=== PATIENT | male | born 1940 | race Caucasian/White ===

== ENCOUNTER 2017-01-05 20:23 | Emergency (ER) | payer OTHER ==
[2017-01-05 20:39] VITALS: BP 151/84; BMI 37.2
[2017-01-05] MEDS ORDERED: PEPCID 20 MG IV PREMIX* 20 MG/50 ML BAG IV ONE ×2 (20:39→21:07)
[2017-01-05] MEDS ORDERED: NS 1000 ML 1,000 ML IV ONE (20:40)
--- NOTE | 2017-01-05 20:41 | DR.GENAD ---
HPI - PCP Primary Care Physician: WATSON - HPI Comment HPI Comment: STARTED TODAY WITH LOW GRADE FEVER. PATIENT DENIES DYSURIA. HAVING SLIGHT SOB. PAIN PROGRESSIVELY GETTING WORSE. - Complaint/Symptoms Chief Complaint Doctors Comments: ABDOMINAL PAIN, NAUSEA, DIARRHEA AND GENERALIZE WEAKNESS. Chief Complaint:: FEVER, STOMACH PAIN, BOWELS RUNNING OFF Self Treatment fo Chief Complaint: TYLENOL - Nurses notes reviewed Nurses Notes Review: Yes - Source History Provided: Patient - Mode of Arrival Mode of Arrival: Wheelchair - Timing Onset of Chief Complaint: 01/05/17 Came on: Suddenly - Duration Duration: Constant Duration: Days - Severity Severity: Moderate PMH - PMH Past Medical History: Yes Past Medical History: Diabetes, Dyslipidemia, Hypertension, [place] Past Medical History Comment: STOMACH ULCERS Past Surgical History: Yes Surgical History: Angioplasty/Stents Past Surgical History Comment: HERNIA SURGER WITH SURGICAL MESH - Family History History of Family Medical Conditions: Yes Family Medical History: [place], Coronary Artery Disease, Hypertension - Social History Does patient currently use any type of tobacco product: No Have you used tobacco products in the last 12 months: No Type of Tobacco Use: Cigarettes Does any household member use tobacco: No Alcohol Use: None Do you use any recreational Drugs:: No Lives With: Spouse Lives Where: Home - infectious screening In the last 2 months have you had wt loss of >10#?: NO Have you had fever, night sweats or hemotysis?: No Have you traveled outside the country in the last 6 months?: No Isolation: Standard ROS - Review of Systems Constitutional: Fever, Weakness, Fatigue. negative: Chills, Diaphoresis, Loss of Appetite Eyes: No Symptoms Reported. negative: Eye Pain, Discharge ENTM: negative: Ear Pain, Nose Discharge, Nose Congestion, Throat Pain Respiratoy: Non-Productive Cough, Short of Breath, Wheezing. negative: Hemoptysis Cardiovascular: Chest Pain, Edema, Palpitations. negative: Syncope Gastrointestinal/Abdominal: Abdominal Pain, Diarrhea, Nausea. negative: Constipation, Vomiting Genitourinary: negative: Dysuria, Frequency, Hematuria Neurological: Headache, Weakness, Dizziness Musculoskeletal: Muscle Pain Integumentary: Rash (CHRONIC DERMATITIS.) Hematologic/Lymphatic: No Symptoms Reported Endocrine: No Symptoms Reported All Other Systems: Reviewed and Negative PE - Vital Signs Vitals: Temperature 100.4 F Pulse Rate 109 Respiratory Rate 16 Blood Pressure [Right Arm] 181/85 Blood Pressure [Left Arm] 151/75 Blood Pressure 151/84 O2 Sat by Pulse Oximetry 94 - General Limitations: No Limitations General Appearance: Alert - Head Head Exam: Normal Inspection - Eyes Eye exam: Normal Appearance - ENT ENT Exam: Normal External Ear Exam External Ear Exam: Normal External Inspection TM/Canal Exam: Bilateral Normal Nose Exam: Normal Nose Exam Mouth Exam: Normal Inspection Throat Exam: Normal Inspection - Neck Neck Exam: Trachea Midline - Chest Chest Inspection: Symmetric Chest Wall Rise - Respiratory Respiratory Exam: Respiratory Distress Respiratory Exam: Bilateral Rhonchi, Lower Rhonchi - Cardiovascular Cardiovascular Exam: Regular Rate, Normal Rhythm, Normal Heart Sounds - Abdominal Exam Abdominal Exam: Normal Bowel Sounds, Soft, Tenderness Abdominal Tenderness: Diffuse, Moderate - Extremities Extremities Exam: Edema - Back Back Exam: Paraspinal Tenderness, Vertebral Tenderness - Neurologic Neurological Exam: Alert, Oriented X3 - Psychiatric Psychiatric Exam: Normal Affect, Normal Mood - Skin Skin Exam: Erythema MDM - Additional Information Additional Information Obtained From: Family - Differential Diagnosis Differential Diagnosis: ABDOMINAL PAIN, DIARRHEA, NAUSEA, DEHYDRATION Course - Treatment Treatment: SEE ORDERS. MEDS GIVEN IN ED WITH IV FLUID. PATIENTS NAUSEA IMPROVING. - Reevaluation 1st: Improved - Consultation Consultation Comments: DISCUSS PATIENT WITH DR. JOSE. ER MANAGEMENT FOR NOW. - Education/Counseling Education/Counseling: Patient, Family, Education Educated On: Treatment, Diagnosis, Needs for Follow Up ROR - Labs Reviewed Laboratory Results Reviewed?: Yes Result Diagrams: 01/05/17 20:50 01/05/17 20:50 Laboratory: 01/06/17 00:35 Stool Stool Culture - Preliminary 01/06/17 00:35 Stool - Final WBC 9.8 X10^3/uL (3.6-10.0) 01/05/17 20:50 RBC 5.07 X10^6/uL (4.7-6.0) 01/05/17 20:50 Hgb 14.9 g/dL (13.5-18.0) 01/05/17 20:50 Hct 44.3 % (42.0-54.0) 01/05/17 20:50 MCV 87.5 fL (80.0-100.0) 01/05/17 20:50 MCH 29.5 pg (27.0-34.0) 01/05/17 20:50 MCHC 33.7 g/dL (33.0-35.0) 01/05/17 20:50 RDW 14.1 % (11.6-16.5) 01/05/17 20:50 Plt Count 251 X10^3/uL (150.0-450.0) 01/05/17 20:50 Plt Count Comment Adequate (ADEQUATE) 01/05/17 20:50 MPV 8.2 fL (7.4-11.0) 01/05/17 20:50 Neut % 94.2 % (42.0-75.0) H 01/05/17 20:50 Lymph % 2.7 % (21.0-51.0) L 01/05/17 20:50 Pettis % 2.7 % (0.0-13.0) 01/05/17 20:50 Eos % 0.2 % (0.9-2.9) L 01/05/17 20:50 Baso % 0.2 % (0.2-1.0) 01/05/17 20:50 Neut # 9.2 x10^3/uL (2.2-4.8) H 01/05/17 20:50 Lymph # 0.3 X10^3/uL (1.3-2.9) L 01/05/17 20:50 Pettis # 0.3 x10^3/uL (0.3-0.8) 01/05/17 20:50 Eos # 0.0 x10^3/uL (0.0-0.2) 01/05/17 20:50 Baso # 0.0 X10^3/uL (0.0-0.1) 01/05/17 20:50 Absolute Nucleated RBC 0.0 /100WBC 01/05/17 20:50 Total Counted 100 01/05/17 20:50 Neutrophils % (Manual) 95 % (39-76) H 01/05/17 20:50 Band Neutrophils % 3 % (0-10) 01/05/17 20:50 Lymphocytes % (Manual) 2 % (13-43) L 01/05/17 20:50 Plt Morphology Comment Normal (NORMAL) 01/05/17 20:50 RBC Morphology Normal (NORMAL) 01/05/17 20:50 Sodium 136 mmol/L (136-145) 01/05/17 20:50 Corrected Sodium 137 mmol/L (136-145) 01/05/17 20:50 Potassium 3.6 mmol/L (3.5-5.1) 01/05/17 20:50 Chloride 103 mmol/L (98-107) 01/05/17 20:50 Carbon Dioxide 23.7 mmol/L (21-32) 01/05/17 20:50 BUN 30 mg/dL (7-18) H 01/05/17 20:50 Creatinine 1.70 mg/dL (0.70-1.30) H 01/05/17 20:50 Est GFR (MDRD) Af Amer 51 (>60) L 01/05/17 20:50 Est GFR (MDRD) Non-Af 42 (>60) L 01/05/17 20:50 Glucose 151 mg/dL (65-99) H 01/05/17 20:50 Calcium 8.8 mg/dL (8.5-10.1) 01/05/17 20:50 Corrected Calcium TNP 01/05/17 20:50 Total Bilirubin 0.50 mg/dL (0.2-1.0) 01/05/17 20:50 AST 25 Units/L (15-37) 01/05/17 20:50 ALT 42 Units/L (12-78) 01/05/17 20:50 Alkaline Phosphatase 48 Units/L (46-116) 01/05/17 20:50 Creatine Kinase 213 Units/L (39-308) 01/05/17 20:50 CK-MB (CK-2) < 1.0 ng/mL (0-4.0) 01/05/17 20:50 CK/CKMB % Calc 0.5 % (<4) 01/05/17 20:50 Troponin I < 0.02 ng/mL (0-1.5) 01/05/17 20:50 Total Protein 7.8 g/dL (6.4-8.2) 01/05/17 20:50 Albumin 3.8 g/dL (3.4-5.0) 01/05/17 20:50 Globulin 4.0 g/dL (2.5-4.5) 01/05/17 20:50 Albumin/Globulin Ratio 1.0 Ratio (1.1-2.1) L 01/05/17 20:50 Amylase 28 Units/L (25-115) 01/05/17 20:50 Lipase 100 Units/L (73-393) 01/05/17 20:50 Specimen Type Clean catch urine 01/05/17 22:25 Urine Color Yellow (YELLOW) 01/05/17 22:25 Urine Appearance Slightly hazy (CLEAR) 01/05/17 22:25 Urine pH 5.0 (5.0 - 8.0) 01/05/17 22:25 Ur Specific [place] 1.020 (1.000-1.030) 01/05/17 22:25 Urine Protein 3+ (NEGATIVE) 01/05/17 22:25 Urine Glucose (UA) Negative (NEGATIVE) 01/05/17 22:25 Urine Ketones Negative (NEGATIVE) 01/05/17 22:25 Urine Occult Blood 2+ (NEGATIVE) 01/05/17 22:25 Urine Nitrite Negative (NEGATIVE) 01/05/17 22:25 Urine Bilirubin Negative (NEGATIVE) 01/05/17 22:25 Urine Urobilinogen Normal (NORMAL) 01/05/17 22:25 Ur Leukocyte Esterase 1+ (NEGATIVE) 01/05/17 22:25 Urine RBC 0-3 /HPF (NEGATIVE) 01/05/17 22:25 Urine WBC 2-5 /HPF (NEGATIVE) 01/05/17 22:25 Ur Squamous Epith Cells Moderate /HPF (NEGATIVE) 01/05/17 22:25 Urine Bacteria Trace /HPF (NEGATIVE) 01/05/17 22:25 Hyaline Casts Few /LPF (NEGATIVE) 01/05/17 22:25 Urine Mucus Few /HPF (NEGATIVE) 01/05/17 22:25 Ur Culture Indicated? No/not indicated 01/05/17 22:25 Stool Description 40g liquid brown 01/06/17 00:35 Stool for White Cells No wbc's seen (None) 01/06/17 00:35 Stl C. diff Tox B Gene Negative (NEGATIVE) 01/06/17 00:35 Stl C. diff [id number] Negative (NEGATIVE) 01/06/17 00:35 Cryptosporid parvum Ag Negative (NEGATIVE) 01/06/17 00:35 E. histolytica Antigen Negative (NEGATIVE) 01/06/17 00:35 Giardia lamblia Ag Negative (NEGATIVE) 01/06/17 00:35 - XRAY XRAY Interpreted by: Radiologist XRAY Findings: REPORT DISCUSS WITH PATIENT AND HIS . - EKG Rhythm: NSR (EKG NOTED) - Diagnosis Discharge Problem: Gastroenteritis Abdominal pain Qualifiers: Abdominal location: lower abdomen, unspecified Qualified Code(s): R10.30 - Lower abdominal pain, unspecified Diarrhea Qualifiers: Diarrhea type: unspecified type Qualified Code(s): R19.7 - Diarrhea, unspecified - Discharge Plan Disposition: HOME, SELF-CARE Condition: Stable Prescriptions: Diphenoxylate/Atropine [Lomotil] 1 tab PO TID #12 tab Ondansetron HCl [Zofran Tab 4 mg] 4 mg PO Q8H PRN #12 tab PRN Reason: Nausea/Vomiting - Follow ups/Referrals Follow ups/Referrals: RUBI CHAUDHARI [Primary Care Provider] - 3 days - Instructions Instructions: Abdominal Pain, Adult, [id number], Diarrhea, Adult, Easy-to- Read, Nausea, Adult, [id number], Dehydration, Elderly, [id number] Additional Instructions: RETURN TO ED IF WORSE.
[2017-01-05] MEDS ORDERED: ZOFRAN INJ 4 MG VIAL IVP ONE (20:56)
[2017-01-05] MEDS ORDERED: DEMEROL INJ IVP ONE (20:56)
[2017-01-05 20:59] LABS: BASOPHILS % (AUTO) 0.2 % (0.2-1.0); EOSINOPHILS % (AUTO) 0.2 % (0.9-2.9); HEMATOCRIT 44.3 % (42.0-54.0); HEMOGLOBIN 14.9 g/dL (13.5-18.0); LYMPHOCYTES # (AUTO) 0.3 X10^3/uL (1.3-2.9); LYMPHOCYTES % (AUTO) 2.7 % (21.0-51.0); MEAN CORPUSCULAR HEMOGLOBIN 29.5 pg (27.0-34.0); MEAN CORPUSCULAR HGB CONC 33.7 g/dL (33.0-35.0); MEAN CORPUSCULAR VOLUME 87.5 fL (80.0-100.0); MEAN PLATELET VOLUME 8.2 fL (7.4-11.0); MONOCYTES # (AUTO) 0.3 x10^3/uL (0.3-0.8); MONOCYTES % (AUTO) 2.7 % (0.0-13.0); NEUTROPHILS # (AUTO) 9.2 x10^3/uL (2.2-4.8); NEUTROPHILS % (AUTO) 94.2 % (42.0-75.0); PLATELET COUNT 251 X10^3/uL (150.0-450.0); RED BLOOD COUNT 5.07 X10^6/uL (4.7-6.0); RED CELL DISTRIBUTION WIDTH 14.1 % (11.6-16.5); WHITE BLOOD COUNT 9.8 X10^3/uL (3.6-10.0)
[2017-01-05] MEDS ORDERED: NS 1000 ML 1,000 ML ONE (21:07)
[2017-01-05] MEDS ORDERED: ZOFRAN INJ 4 MG VIAL ONE (21:07)
[2017-01-05] MEDS ORDERED: DEMEROL INJ ONE (21:08)
[2017-01-05 21:11] LABS: ALANINE AMINOTRANSFERASE 42 Units/L (12-78); ALBUMIN 3.8 g/dL (3.4-5.0); ALKALINE PHOSPHATASE 48 Units/L (46-116); AMYLASE 28 Units/L (25-115); ASPARTATE AMINO TRANSFERASE 25 Units/L (15-37); BLOOD UREA NITROGEN 30 mg/dL (7-18); CALCIUM 8.8 mg/dL (8.5-10.1); CARBON DIOXIDE 23.7 mmol/L (21-32); CHLORIDE 103 mmol/L (98-107); COR NA(FOR HYPERGLY) 137 mmol/L (136-145); GLUCOSE 151 mg/dL (65-99); LIPASE 100 Units/L (73-393); SODIUM 136 mmol/L (136-145); TOTAL PROTEIN 7.8 g/dL (6.4-8.2); eGFR BLACK RACES 51 (>60); eGFR NON BLACK RACES 42 (>60)
[2017-01-05 21:12] LABS: BAND NEUTROPHILS % 3 % (0-10); PLATELET MORPHOLOGY COMMENT NORMAL (NORMAL)
[2017-01-05 21:24] LABS: CKMB % 0.5 % (<4); CREATINE KINASE 213 Units/L (39-308); CREATINE KINASE MB < 1.0 ng/mL (0-4.0); TROPONIN I < 0.02 ng/mL (0-1.5)
--- NOTE | 2017-01-05 21:49 | CT ---
EXAM: CT ABDOMEN AND PELVIS WITHOUT CONTRAST INDICATION: Abdominal pain COMPARISION: No priors available for comparison TECHNIQUE: Axial CT examination of the abdomen and pelvis was performed without intravenous contrast. Coronal a nd sagittal reconstructions were created using the axial data. FINDINGS: The lung bases are clear. The liver is diffusely fatty infiltrated . The spleen, pancreas, adrenal g lands, kidneys, and gallbladder are normal. There is no evidence of biliary ductal dilatation. The a baltazar and inferior vena cava are normal in caliber. The bowel loops are nonobstructed. No abnormal mass, lymphadenopathy, or fluid collection. Urinary bladder is normal. The appendix is normal. There is colonic diverticulosis. The regional skeleton is intact. IMPRESSION: There is diffuse fatty infiltration of the liver. There is colonic diverticulosis. No acute abnormal ity identified. Reported By:
--- NOTE | 2017-01-05 22:51 | RAD ---
EXAM: Chest X-ray INDICATION: Chest pain COMPARISION: Prior exam from January 04, 2016 TECHNIQUE: AP, single view FINDINGS: The lungs are clear in the lung volumes are within normal limits. No pleural effusion or pneumothora x. The cardiac silhouette and mediastinum are normal. The regional skeleton is intact. IMPRESSION: Normal Chest X-Ray Reported By:
[2017-01-05 22:53] LABS: BILIRUBIN,URINE NEGATIVE (NEGATIVE); BLOOD/HEMOGLOBIN,URINE 2+ (NEGATIVE); GLUCOSE, URINE NEGATIVE (NEGATIVE); KETONES,URINE NEGATIVE (NEGATIVE); LEUKOCYTE ESTERASE ,URINE 1+ (NEGATIVE); NITRITES,URINE NEGATIVE (NEGATIVE); PROTEIN,URINE 3+ (NEGATIVE); UROBILINOGEN,URINE NORMAL (NORMAL)
[2017-01-05 23:03] LABS: APPEARANCE,URINE SLIGHTLY HAZY (CLEAR); BACTERIA,URINE TRACE /HPF (NEGATIVE); COLOR,URINE YELLOW (YELLOW); HYALINE CASTS, URINE FEW /LPF (NEGATIVE); MUCUS,URINE FEW /HPF (NEGATIVE); RBC,URINE 0-3 /HPF (NEGATIVE); SQUAMOUS EPITHELIAL CELL,UR MODERATE /HPF (NEGATIVE)
[2017-01-06] MEDS ORDERED: ZOFRAN INJ 4 MG VIAL ONE (00:01)
[2017-01-06] MEDS ORDERED: ZOFRAN INJ 4 MG VIAL IVP ONE (00:05)
[2017-01-06] MEDS ORDERED: ZANTAC PO ONE ×2 (00:16→00:41)
[2017-01-06 01:52] LABS: CRYPTOSPORIDIUM PARVUM ANTIGEN NEGATIVE (NEGATIVE); GIARDIA LAMBLIA ANTIGEN NEGATIVE (NEGATIVE)
[2017-01-06] MEDS ORDERED: LOMOTIL PO ONE (02:05)
[2017-01-06] MEDS ORDERED: LOMOTIL ONE (02:09)
== END 2017-01-06 02:24 | disposition home or self-care (01) ==
LOC: ER 20:23
DX: K52.89 Other specified noninfective gastroenteritis and colitis (principal); R10.84 Generalized abdominal pain; R19.7 Diarrhea, unspecified
CPT/HCPCS: 36415; 71010; 74176; 80053; 81001; 82150; 82550; 82553; 83690; 84484; 85025; 87045; 87205; 87328; 87329; 87336; 87427; 87493; 87899; 93005; 93010; 96365; 96367; 96374; 96375; 99283; A4222; S0028; J2175; J2405